=== PATIENT | male | born 1945 | race Caucasian/White ===

== ENCOUNTER 2017-12-13 09:57 | Emergency (ER) | payer OTHER, MEDICARE ==
[~2017-12-13] VITALS: Ht 185.4 cm; Wt 106.8 kg
[~2017-12-13 09:57] MED LIST: ASPI81TA52 PO; BUPR1TAB36 SL; GABA-532 PO; LISI10TA4 PO; RIVA20TA PO; SIMV40TA PO
[2017-12-13 11:07] LABS: BASOPHILS % (AUTO) 0.3 % (0-1); EOSINOPHILS # (AUTO) 0.2 X10'3 (0-0.9); EOSINOPHILS % (AUTO) 2.2 % (0-6); HEMATOCRIT 40.1 % (42.0-52.0); HEMOGLOBIN 13.3 g/dl (14.0-17.9); LYMPHOCYTES # (AUTO) 1.7 X10'3 (1.1-4.8); LYMPHOCYTES % (AUTO) 21.1 % (21-51); MEAN CORPUSCULAR HEMOGLOBIN 30.9 PG (27.0-31.0); MEAN CORPUSCULAR HGB CONC 33.2 % (33.0-36.5); MEAN CORPUSCULAR VOLUME 93.2 FL (78-98); MEAN PLATELET VOLUME 9.2 FL (7.4-10.4); MONOCYTES # (AUTO) 0.6 X10'3 (0-0.9); MONOCYTES % (AUTO) 7.8 % (2-12); NEUTROPHILS # (AUTO) 5.5 X10'3 (1.8-7.7); NEUTROPHILS % (AUTO) 68.6 % (42-75); PLATELET COUNT 196 X10'3 (140-440); RED BLOOD COUNT 4.31 X10'6 (4.70-6.10); RED CELL DISTRIBUTION WIDTH 14.2 % (11.5-14.5); WHITE BLOOD COUNT 8.1 X10'3 (4.5-11.0)
[2017-12-13] MEDS ORDERED: normal saline 1000ML IV soln IVB ONE (11:15)
[2017-12-13 11:16] LABS: INR 1.2 INR; PARTIAL THROMBOPLASTIN TIME 35 SECONDS (22-32); PROTHROMBIN TIME 11.9 SECONDS (9.0-12.0)
[2017-12-13 11:20] LABS: ALANINE AMINOTRANSFERASE 77 U/L (12-78); ALBUMIN 3.4 G/DL (3.4-5.0); ALKALINE PHOSPHATASE 115 IU/L (46-116); ANION GAP 4 (8-16); ASPARTATE AMINO TRANSFERASE 27 U/L (10-37); BILIRUBIN,TOTAL 0.2 MG/DL (0.1-1.0); BLOOD UREA NITROGEN 20 MG/DL (7-18); CALCIUM 8.5 MG/DL (8.5-10.1); CHLORIDE 104 MMOL/L (99-107); GLUCOSE 103 MG/DL (70-104); POTASSIUM 4.3 MMOL/L (3.5-5.1); SODIUM 140 MMOL/L (135-145); TOTAL CARBON DIOXIDE 32.1 MMOL/L (24-32); TOTAL PROTEIN 6.7 G/DL (6.4-8.2); eGFR 73 ML/MIN
[2017-12-13 11:43] LABS: ETHANOL < 0.010 GM/DL (0.0-0.010); TROPONIN I < 0.04 NG/ML (0.0-0.05)
[2017-12-13 11:44] LABS: ACETAMINOPHEN < 2.0 UG/ML (10-30)
[2017-12-13 12:13] LABS: CLARITY,URINE CLEAR (Clear); COLOR,URINE STRAW (Yellow); GLUCOSE, URINE NEGATIVE (Neg); KETONES,URINE NEGATIVE (Neg); LEUKOCYTE ESTERASE ,URINE NEGATIVE (Neg); NITRITES, URINE NEGATIVE (Neg); OCCULT BLOOD,URINE NEGATIVE (Neg); PH,URINE 6.5 (4.8-8.0); PROTEIN,URINE NEGATIVE (Neg); UROBILINOGEN,URINE 0.2 E.U/dL (0.2-1.0)
[2017-12-13 12:14] LABS: UA COLLECTION TYPE CLN CATCH MIDSTREAM
[2017-12-13 12:25] LABS: URINE AMPHETAMINE SCREEN NEGATIVE (Neg); URINE BARBITUATE SCREEN NEGATIVE (Neg); URINE BENZODIAZEPINES SCREEN NEGATIVE (Neg); URINE CANNABINOID SCREEN NEGATIVE (Neg); URINE COCAINE SCREEN NEGATIVE (Neg); URINE METHADONE SCREEN NEGATIVE (Neg); URINE OPIATE SCREEN NEGATIVE (Neg); URINE PHENCYCLIDINE SCREEN NEGATIVE (Neg)
[2017-12-13 14:24] VITALS: BP 161/82
== END 2017-12-13 14:26 | disposition home or self-care (01) ==
LOC: ER 09:58
DX: T40.4X1A Poisoning by other synthetic narcotics, accidental (unintentional), initial encounter (principal); T42.6X1A Poisoning by other antiepileptic and sedative-hypnotic drugs, accidental (unintentional), initial encounter; E86.0 Dehydration; I10 Essential (primary) hypertension; G62.9 Polyneuropathy, unspecified; R53.83 Other fatigue; G89.29 Other chronic pain; Z88.5 Allergy status to narcotic agent; Z79.82 Long term (current) use of aspirin; Y92.89 Other specified places as the place of occurrence of the external cause
CPT/HCPCS: 36415; 80053; 80305; 80320; 80329; 81003; 84443; 84484; 85025; 85610; 85730; 93005; 96360; 99291; J7030

== ENCOUNTER 2019-05-14 10:29 | Emergency (ER) | payer OTHER, MEDICARE ==
[~2019-05-14] VITALS: Ht 188 cm; Wt 119.5 kg
[2019-05-14] MEDS ORDERED: morphine 4 MG/ML inj SYRINge IV ONE ×3 (12:55→17:40)
[2019-05-14] MEDS ORDERED: vancomycin/NS 1 GM ADD-VANTAGE 250 ML IV ONE (12:55)
--- NOTE | 2019-05-14 14:46 | NUR ---
CALLED [facility] TO GIVE REPORT. SPOKE WITH ED RICE MILLING SUPERVISOR WHO STATED THE CN WAS BUSY AND WOULD RETURN THE CALL IN 10 MINUTES.
--- NOTE | 2019-05-14 15:55 | NUR ---
DR GONSALEZ MADE AWARE PATIENT TO BE PICKED UP BY [facility] AT 1900, PATIENT AWAKE, ALERT, NO SIGNS OF DISTRESS NOTED, FAMILY AT BEDSIDE.
[2019-05-14] MEDS ORDERED: morphine 4 MG/ML inj SYRINge IV PRN (18:00)
--- NOTE | 2019-05-14 18:01 | NUR ---
[facility] ETA 1900 BUT NO GUARANTEE, RECEIVED VERBAL ORDER DR DR DAO FOR 4 MG IV MORPHINE PRN Q 4 HOURS FOR PAIN.
[2019-05-14 19:33] VITALS: BP 132/76
[2019-05-14] MEDS ORDERED: pregabalin 75mg capsule PO ONE (20:10)
== END 2019-05-14 20:31 | disposition short-term general hospital (02) ==
LOC: ER 10:30
DX: L03.115 Cellulitis of right lower limb (principal); I10 Essential (primary) hypertension; G89.29 Other chronic pain; F32.9 Major depressive disorder, single episode, unspecified; Z86.718 Personal history of other venous thrombosis and embolism; Z98.890 Other specified postprocedural states; Z88.5 Allergy status to narcotic agent; Z79.82 Long term (current) use of aspirin; Z79.899 Other long term (current) drug therapy
CPT/HCPCS: 36415; 83605; 85651; 86140; 87040; 96374; 96376; 99285; J2270; J3370

== ENCOUNTER 2019-07-01 12:28 | Emergency (ER) | payer MEDICARE, OTHER ==
[~2019-07-01] VITALS: Ht 185.4 cm; Wt 100.8 kg
--- NOTE | 2019-07-01 12:44 | NUR ---
AMBULATORY TO ER #[id number] WITH RIGHT LEG SWELLING AND REDNESS. HX RIGHT KNEE REPLACEMENT IN 04/2019. HX PREVIOUS BLOOD CLOT IN LEG. PAIN AND SWELLING PERSIST IN LEG. TAKING ELIQUIS BID.
[2019-07-01] MEDS ORDERED: enoxaparin 100mg/ml syringe SUBCUT ONE (13:10)
--- NOTE | 2019-07-01 13:31 | NUR ---
DISCUSSED WITH MARK SOSA ABOUT PAGING THE HOSPITALIST , PER MARK SOSA DO NOT WORRY ABOUT IT ,ITS BEEN SORTED OUT.PT IS GOING TO DISCHARGE.
[2019-07-01 14:05] VITALS: BP 138/76
== END 2019-07-01 14:09 | disposition home or self-care (01) ==
LOC: ER 12:29
DX: I82.401 Acute embolism and thrombosis of unspecified deep veins of right lower extremity (principal); I10 Essential (primary) hypertension; G89.29 Other chronic pain; F32.9 Major depressive disorder, single episode, unspecified; Z98.890 Other specified postprocedural states; Z88.5 Allergy status to narcotic agent; Z79.82 Long term (current) use of aspirin; Z79.01 Long term (current) use of anticoagulants; Z79.899 Other long term (current) drug therapy
CPT/HCPCS: 96372; 99282; 99283; J1650

== ENCOUNTER 2019-07-13 06:52 | Inpatient (IN) | payer MEDICARE, OTHER ==
[~2019-07-13] VITALS: Ht 188 cm; Wt 122.7 kg
[2019-07-13 07:22] LABS: BASOPHILS % (AUTO) 0.6 % (0-1); EOSINOPHILS # (AUTO) 0.2 X10'3 (0-0.9); EOSINOPHILS % (AUTO) 2.3 % (0-6); HEMOGLOBIN 14.3 g/dl (14.0-17.9); LYMPHOCYTES # (AUTO) 2.2 X10'3 (1.1-4.8); LYMPHOCYTES % (AUTO) 32.7 % (21-51); MEAN CORPUSCULAR HEMOGLOBIN 31.5 PG (27.0-31.0); MEAN CORPUSCULAR HGB CONC 33.2 g/dL (33.0-36.5); MEAN CORPUSCULAR VOLUME 94.9 FL (78-98); MEAN PLATELET VOLUME 10.3 FL (7.4-10.4); MONOCYTES # (AUTO) 0.9 X10'3 (0-0.9); NEUTROPHILS # (AUTO) 3.4 X10'3 (1.8-7.7); NEUTROPHILS % (AUTO) 50.4 % (42-75); PLATELET COUNT 167 X10'3 (140-440); RED BLOOD COUNT 4.54 X10'6 (4.70-6.10); RED CELL DISTRIBUTION WIDTH 13.9 % (11.5-14.5); WHITE BLOOD COUNT 6.7 X10'3 (4.5-11.0)
[2019-07-13] MEDS ORDERED: heparin 25,000 UNIT/250ml bag 250 ML IV SCH ×2 (07:32→10:09)
[2019-07-13] MEDS ORDERED: heparin 10,000 units/1 ML INJ IV PRN ×3 (07:35→16:15)
[2019-07-13] MEDS ORDERED: aspirin 325mg tablet PO ONE (07:35)
[2019-07-13] MEDS ORDERED: heparin 10,000 units/1 ML INJ IV ONE ×3 (07:35→16:15)
[2019-07-13] MEDS ORDERED: fentaNYL/PF 50MCG/1 ML 2ML syringe IV ONE ×2 (07:35→08:35)
[2019-07-13 07:36] LABS: ALANINE AMINOTRANSFERASE 74 U/L (12-78); ALBUMIN 3.7 G/DL (3.4-5.0); ALKALINE PHOSPHATASE 141 IU/L (46-116); ANION GAP 10 (8-16); ASPARTATE AMINO TRANSFERASE 47 U/L (10-37); BILIRUBIN,TOTAL 0.2 MG/DL (0.1-1.0); BLOOD UREA NITROGEN 24 MG/DL (7-18); BUN/CREATININE RATIO 20.3 (5.4-32.0); CALCIUM 8.8 MG/DL (8.5-10.1); CHLORIDE 109 MMOL/L (99-107); CREATININE 1.18 MG/DL (0.60-1.10); GLUCOSE 101 MG/DL (70-104); SODIUM 146 MMOL/L (135-145); TOTAL CARBON DIOXIDE 27.4 MMOL/L (24-32); TOTAL PROTEIN 7.3 G/DL (6.4-8.2); eGFR 60 ML/MIN
[2019-07-13 07:41] LABS: PARTIAL THROMBOPLASTIN TIME 33 SECONDS (22-32)
[2019-07-13] MEDS ORDERED: iohexol 350MG/ML 100ml bottle IV ONE ×2 (07:45→15:23)
--- NOTE | 2019-07-13 08:04 | NUR ---
awaiting for sample shoe inspector and reworker to take pt to ct.
--- NOTE | 2019-07-13 08:05 | NUR ---
pathology laboratory technologist at bedside. Pt en route to CT via wheelchair.
[2019-07-13] MEDS ORDERED: normal saline 1000ml 1,000 ML IV ONE (08:15)
[2019-07-13] MEDS ORDERED: ondansetron/PF 4mg/2ml inj IV ONE (08:35)
--- NOTE | 2019-07-13 09:34 | NUR ---
still has 10/10 chest pain,dr. dimas at bedside.
[2019-07-13] MEDS ORDERED: LIDOcaine Viscous 15ml cup PO ONE (09:35)
[2019-07-13] MEDS ORDERED: mag hydrox/Alum hydrox/simeth 30ml oral suspension PO ONE (09:35)
[2019-07-13] MEDS: nitroGLYCERIN 0.4mg SUBLingual tab SL PRN ×3 (09:38→16:31)
--- NOTE | 2019-07-13 09:39 | NUR ---
per dr. dimas-hold gi cocktail for now and to try nitro SL first.
[2019-07-13] MEDS ORDERED: nitroGLYCERIN 0.4mg SUBLingual tab SL PRN ×2 (10:10)
[2019-07-13] MEDS ORDERED: aminophylline 250mg/10ml inj. IV PRN (10:10)
[2019-07-13] MEDS ORDERED: potassium CL 10mEq/100ml bag 100 ML IV PRN ×2 (10:10)
[2019-07-13] MEDS ORDERED: ondansetron/PF 4mg/2ml inj IV PRN (10:10)
[2019-07-13] MEDS ORDERED: mag hydrox/Alum hydrox/simeth 30ml oral suspension PO PRN (10:10)
[2019-07-13] MEDS ORDERED: acetaminophen 325mg tablet PO PRN ×2 (10:10)
[2019-07-13] MEDS ORDERED: metoprolol tartrate 1mg/ml inj IV PRN (10:10)
[2019-07-13] MEDS ORDERED: HYDROcodone/acetaminophen 5mg/325mg tablet PO PRN (10:10)
[2019-07-13] MEDS ORDERED: magnesium 4gm in 100ml NS 100 ML IV PRN (10:10)
[2019-07-13] MEDS ORDERED: magnesium Cl slow-release 64mg tablet PO PRN (10:10)
[2019-07-13] MEDS ORDERED: potassium Cl 20 mEq SR tablet PO PRN ×2 (10:10)
[2019-07-13] MEDS ORDERED: regadenoson 0.4mg/5ml syringe IV PRN (10:10)
[2019-07-13] MEDS ORDERED: magnesium 2GM in 50ml NS 50 ML IV PRN (10:10)
[2019-07-13] MEDS ORDERED: magnesium hydroxide 30ml (MOM) UD suspension PO PRN (10:10)
[2019-07-13] MEDS ORDERED: HYDROcodone/acetaminophen 10/325mg tab PO PRN (10:10)
--- NOTE | 2019-07-13 10:26 | NUR ---
PATIENT REPORTS CP 09/05,DR. BRADLEY MADE AWARE.
--- NOTE | 2019-07-13 10:37 | NUR ---
SPOKE TO DR. ANDERSON WHO OK'D TO CONTINUE WITH HEPARIN DRIP RATE OF 1700 UNITS PER DVT PROTOCOL.ALSO MADE AWARE THAT PATIENT'S CP IS STILL 09/05.NO REPEAT EKG AT THIS TIME-PER MD AND THAT HE IS COMING HERE SHORTLY.
[2019-07-13] MEDS ORDERED: morphine 5 MG/ML injection IV PRN (10:55)
[2019-07-13 11:07] LABS: PHOSPHORUS 3.3 MG/DL (2.3-4.5)
[2019-07-13] MEDS ORDERED: morphine 10mg/ml inj. IV PRN (11:09)
[2019-07-13] MEDS ORDERED: LYR25C PO (11:19)
[2019-07-13] MEDS ORDERED: ATOR80TA PO (11:19)
[2019-07-13] MEDS ORDERED: BUPR150T8 PO (11:19)
--- NOTE | 2019-07-13 11:21 | NUR ---
PER DR. ANDERSON,PATIENT HAS LARGE GALLSTONE AND THAT TO KEEP HEPARIN UNTIL HE SPEAKS TO DR. MILLIGAN.
--- NOTE | 2019-07-13 11:22 | NUR ---
KEEP PATIENT NPO PER DR. ANDERSON.
[2019-07-13] MEDS: normal saline 1000ml 1,000 ML IV SCH ×2 (11:27→21:43)
--- NOTE | 2019-07-13 12:40 | NUR ---
DR. FERRER/COVERING DR. SAVAGE AT BEDSIDE. Addendum: 07/13/[address] FERRER/ANESTHESIOLOGIST.
[2019-07-13 12:47] LABS: BASOPHILS % (AUTO) 0.2 % (0-1); EOSINOPHILS % (AUTO) 0.6 % (0-6); HEMATOCRIT 40.1 % (42.0-52.0); HEMOGLOBIN 13.2 g/dl (14.0-17.9); LYMPHOCYTES # (AUTO) 1.1 X10'3 (1.1-4.8); LYMPHOCYTES % (AUTO) 16.3 % (21-51); MEAN CORPUSCULAR HEMOGLOBIN 31.4 PG (27.0-31.0); MEAN CORPUSCULAR HGB CONC 32.9 g/dL (33.0-36.5); MEAN CORPUSCULAR VOLUME 95.6 FL (78-98); MEAN PLATELET VOLUME 10.8 FL (7.4-10.4); MONOCYTES # (AUTO) 0.5 X10'3 (0-0.9); MONOCYTES % (AUTO) 7.4 % (2-12); NEUTROPHILS # (AUTO) 5.2 X10'3 (1.8-7.7); NEUTROPHILS % (AUTO) 75.5 % (42-75); PLATELET COUNT 146 X10'3 (140-440); RED CELL DISTRIBUTION WIDTH 13.6 % (11.5-14.5); WHITE BLOOD COUNT 6.9 X10'3 (4.5-11.0)
[2019-07-13] MEDS ORDERED: ceFAZolin 1000mg inj ONE (12:49)
[2019-07-13] MEDS ORDERED: BUPIVAcaine/PF 2.5 mg/ml (0.25%) 30ml vial ONE (12:49)
--- NOTE | 2019-07-13 13:25 | NUR ---
FAMILY AT BEDSIDE,CALLED OR,PATIENT WILL HAVE SX AFTER "COUPLE HOURS" PER KRISTOPHER.
--- NOTE | 2019-07-13 13:25 | NUR ---
PTT 121,HEPARIN DC'D PER ORDER.PATIENT REQUESTING PAIN MED,MORPHINE GIVEN 1127.PAGED DR. ANDERSON.
--- NOTE | 2019-07-13 13:37 | NUR ---
SPOKE TO DR. ANDERSON,ORDERED TO DC MORPHINE AND TO CHANGE IT TO DILAUDID 1MG [id number] PRN FOR PAIN,ORDER NOTED AND CARRIED OUT.
--- NOTE | 2019-07-13 13:38 | NUR ---
DR. SAVAGE AT BEDSIDE.
--- NOTE | 2019-07-13 13:41 | NUR ---
PATIENT UP TO THE BATHROOM.ASSISTED BY STAFF USING A WHEELCHAIR.
[2019-07-13] MEDS: HYDROmorphone 1 mg/ml syringe IV PRN (14:33)
--- NOTE | 2019-07-13 14:36 | NUR ---
field artillery targeting technician at [facility],wu lester/[place], hold oral contrast for now,dimension specification inspector will verify order from dr. armendariz.
[2019-07-13] MEDS: diatr meglu/diatrizoate 30ml oral sol.-(3 dose) bottle PO SCH ×3 (15:00→21:00)
[2019-07-13] MEDS ORDERED: sincalide inj 1.9 MCG in normal saline 50ml IV soln 50 ML IV PRN (16:15)
[2019-07-13 16:21] LABS: LIPASE 110 U/L (73-393)
[2019-07-13 16:30] VITALS: BP 160/90
[2019-07-13] MEDS ORDERED: naloxone 0.4 mg/ml inj IV PRN (16:30)
[2019-07-13] MEDS ORDERED: CADD PCA waste documentation MC SCH (16:30)
[2019-07-13] MEDS: HYDROmorphone/NS 1 mg/ml CADD 50 ML IV SCH ×4 (17:17→23:00)
[2019-07-13] MEDS: heparin 25,000 UNIT/250ml bag 250 ML IV SCH (17:21)
--- NOTE | 2019-07-13 18:30 | NUR ---
Problems reprioritized. Patient report given, questions answered & plan of care reviewed with nicole [place].
--- NOTE | 2019-07-13 18:38 | NUR ---
Received report from Mimi DASILVA pt has family at bedside in no apparent distress, call light and items of freq use within reach.
[2019-07-13 19:15] VITALS: BP 162/67
[2019-07-13] MEDS: pregabalin 25mg capsule PO SCH (19:56)
[2019-07-13] MEDS ORDERED: temazepam 15mg capsule PO PRN (21:00)
[2019-07-14] VITALS (10 sets, daily range): BP systolic 127–166; BP diastolic 59–77
--- NOTE | 2019-07-14 00:14 | NUR ---
Notified Dr. Nicole of critical PTT of 107, will follow heparin protocol, stopped heparin for two hours.
[2019-07-14] MEDS: HYDROmorphone/NS 1 mg/ml CADD 50 ML IV SCH ×9 (00:58→21:00)
[2019-07-14] MEDS: heparin 25,000 UNIT/250ml bag 250 ML IV SCH (02:12)
--- NOTE | 2019-07-14 02:15 | NUR ---
Restarted pts heparin drip at 1400unit/hr
[2019-07-14 06:06] LABS: BASOPHILS % (AUTO) 0.1 % (0-1); EOSINOPHILS % (AUTO) 0.1 % (0-6); HEMATOCRIT 38.9 % (42.0-52.0); HEMOGLOBIN 12.7 g/dl (14.0-17.9); LYMPHOCYTES # (AUTO) 1.3 X10'3 (1.1-4.8); LYMPHOCYTES % (AUTO) 10.3 % (21-51); MEAN CORPUSCULAR HEMOGLOBIN 31.2 PG (27.0-31.0); MEAN CORPUSCULAR HGB CONC 32.7 g/dL (33.0-36.5); MEAN CORPUSCULAR VOLUME 95.5 FL (78-98); MEAN PLATELET VOLUME 11.3 FL (7.4-10.4); MONOCYTES % (AUTO) 8.4 % (2-12); NEUTROPHILS # (AUTO) 9.8 X10'3 (1.8-7.7); NEUTROPHILS % (AUTO) 81.1 % (42-75); PLATELET COUNT 148 X10'3 (140-440); RED BLOOD COUNT 4.07 X10'6 (4.70-6.10); RED CELL DISTRIBUTION WIDTH 13.8 % (11.5-14.5); WHITE BLOOD COUNT 12.1 X10'3 (4.5-11.0)
--- NOTE | 2019-07-14 06:07 | NUR ---
Gave report to Mimi DASILVA pt is resting on RA, in no apparent distress call light and items of freq use within reach.
--- NOTE | 2019-07-14 06:40 | NUR ---
Patient in room [facility] 356. I have received report from SHERRON DASILVA and had the opportunity to ask questions and assume patient care.
[2019-07-14 06:46] LABS: ALBUMIN 3.2 G/DL (3.4-5.0); ANION GAP 9 (8-16); BLOOD UREA NITROGEN 18 MG/DL (7-18); CALCIUM 8.5 MG/DL (8.5-10.1); CHLORIDE 107 MMOL/L (99-107); CHOL/HDL RATIO 1.9 (0.00-4.99); CHOLESTEROL 115 MG/DL (0-200); GLUCOSE 105 MG/DL (70-104); HDL CHOLESTEROL 61 MG/DL (35-60); LDL CHOLESTEROL 38 MG/DL (50-100); MAGNESIUM 2.2 MG/DL (1.5-2.4); PHOSPHORUS 3.2 MG/DL (2.3-4.5); SODIUM 143 MMOL/L (135-145); TOTAL CARBON DIOXIDE 26.6 MMOL/L (24-32); TRIGLYCERIDES 63 MG/DL (20-135); eGFR 73 ML/MIN
[2019-07-14] MEDS: K and/or MAG REPLACEMENT MC SCH (06:58)
[2019-07-14 07:42] LABS: LARGE PLATELETS FEW; PLATELET ESTIMATE NORMAL
[2019-07-14] MEDS ORDERED: morphine 2 MG/ML inj. syringe IV ONE (09:35)
[2019-07-14] MEDS: normal saline 1000ml 1,000 ML IV SCH ×2 (10:48→16:09)
[2019-07-14] MEDS: buPROPion SR 150mg tablet PO SCH (10:50)
[2019-07-14] MEDS: pregabalin 25mg capsule PO SCH ×2 (11:30→19:44)
--- NOTE | 2019-07-14 13:54 | NUR ---
PLACED HEP DRIP ON HOLD D/T PENDING SURGERY @ 1600
--- NOTE | 2019-07-14 18:24 | NUR ---
Problems reprioritized. Patient report given, questions answered & plan of care reviewed with BOY DASILVA.
--- NOTE | 2019-07-14 18:30 | NUR ---
Patient in room [facility] 356. I have received report from VIDYA Le and had the opportunity to ask questions and assume patient care.
--- NOTE | 2019-07-14 19:13 | NUR ---
Patent is about to go to the OR for a lap kisha within the hour. Tech informed me that he has a temp of 101.5 , and oxygen saturation 88% on RA. Patient placed on 1 L of oxygen and is now stating at 93%, cool wash cloth placed on forehead. Dr Miller was informed of the temperature and I was not given any orders.
[2019-07-14] MEDS ORDERED: gentamicin 40 MG/1 ML inj ONE (20:15)
[2019-07-14] MEDS ORDERED: clindamycin phosphate 150mg/ml inj. ONE (20:15)
[2019-07-14] MEDS ORDERED: BUPIVAcaine/PF 2.5 mg/ml (0.25%) 30ml vial ONE (20:15)
--- NOTE | 2019-07-14 20:15 | NUR ---
Patient transferred to OR with REVERSING MILL ROLLER transporting, followed by family. Patient is in no apparent distress.
[2019-07-14] MEDS ORDERED: sevoflurane 250ml liquid IH ONE (20:42)
[2019-07-14] MEDS ORDERED: ePHEDrine 50MG/ML INJ. ONE (20:42)
[2019-07-14] MEDS ORDERED: fentaNYL/PF 50MCG/1 ML 2ML syringe ONE ×2 (20:47→21:20)
[2019-07-14] MEDS ORDERED: rocuronium 10mg/ml inj IV ONE (21:08)
[2019-07-14] MEDS ORDERED: neostigmine methylsulfate 1 MG/ML 10ml vial ONE (21:08)
[2019-07-14] MEDS ORDERED: glycopyrrolate 0.2mg/ml inj ONE (21:08)
[2019-07-14] MEDS ORDERED: LIDOcaine 2% (20mg/ml) 5ml vial ONE (21:08)
[2019-07-14] MEDS ORDERED: dexamethasone sod phosphate 4mg/ml inj. ONE (21:08)
[2019-07-14] MEDS ORDERED: ondansetron/PF 4mg/2ml inj ONE (21:08)
[2019-07-14] MEDS ORDERED: propofol inj 20 ML IV ONE (21:08)
[2019-07-14] MEDS ORDERED: ceFOXitin 2 GM ADDVANTGE BAG 50 ML IV ONE (21:09)
[2019-07-14] MEDS ORDERED: ringers solution, lacted 1,000 ML IV SCH (21:37)
[2019-07-14] MEDS ORDERED: ondansetron/PF 4mg/2ml inj IV PRN (21:40)
[2019-07-14] MEDS ORDERED: HYDROmorphone inj. 0.5 MG/0.5 ML DISP.SYRIN IV PRN (21:40)
[2019-07-14] MEDS ORDERED: morphine 4 MG/ML inj SYRINge IV PRN (21:40)
--- NOTE | 2019-07-14 22:25 | NUR ---
Received from OR via BED , accompanied by Anesthesiologist DR HORAN and report given by Anesthesiolgist, PATIENT WAKING UP, DENIES PAIN, V/S WNL, CSM INTACT, ABDOMEN DRESSING X3 CDI WITH KARLY DRAIN WITH MINIMAL OUTPUT AT THIS TIME, SCD ON, 20G PIV TO RUE , SCD ON.
--- NOTE | 2019-07-14 23:25 | NUR ---
PATIENT ORIENTED X4, DENIES PAIN, V/S WNL, CSM INTACT, ABDOMEN DRESSING X3 CDI WITH KARLY DRAIN WITH MINIMAL OUTPUT AT THIS TIME, SCD ON, 20G PIV TO RUE , SCD ON. PATIENT TAKEN TO 356B WITH ALL BELONGINGS AND HOOKED UP TO MONITORS IN ROOM AND REPORT GIVEN TO RN WHO HAS TAKEN OVER PATIENT CARE.
--- NOTE | 2019-07-14 23:30 | NUR ---
Patient arrived back to unit with recovery nurse transporting, Abdominal dressing x3 CDI, KARLY to the RUQ, Sanguineous drainage is draining into it. 65% was emptied upon arrival to unit. SCDs were turned on, patients family at bedside. Addendum: 07/15/19 at 0217 by Yunior Suárez RN 65ML not %
[2019-07-15] VITALS (10 sets, daily range): BP systolic 119–132; BP diastolic 51–65
[2019-07-15] MEDS: HYDROmorphone 1 mg/ml syringe IV PRN (00:12)
[2019-07-15] MEDS: piperacillin/tazo 3.375gm/50ml 50 ML IV SCH ×3 (00:28→15:49)
[2019-07-15] MEDS: normal saline 1000ml 1,000 ML IV SCH ×3 (00:35→22:21)
--- NOTE | 2019-07-15 02:17 | NUR ---
Patient confused, he was pulling off tele monitor, and lap site dressings, he had attempted to crawl out of bed around 0000. Bed alarm was activated. was called to see if she could come sit with patient. She arrived around 0200.
[2019-07-15 06:07] LABS: ALBUMIN 2.6 G/DL (3.4-5.0); ANION GAP 9 (8-16); BLOOD UREA NITROGEN 19 MG/DL (7-18); BUN/CREATININE RATIO 18.1 (5.4-32.0); CALCIUM 7.8 MG/DL (8.5-10.1); CHLORIDE 107 MMOL/L (99-107); CREATININE 1.05 MG/DL (0.60-1.10); GLUCOSE 119 MG/DL (70-104); MAGNESIUM 2.3 MG/DL (1.5-2.4); PHOSPHORUS 3.2 MG/DL (2.3-4.5); POTASSIUM 4.5 MMOL/L (3.5-5.1); SODIUM 141 MMOL/L (135-145); TOTAL CARBON DIOXIDE 25.3 MMOL/L (24-32); eGFR 69 ML/MIN
[2019-07-15 06:14] LABS: BASOPHILS % (AUTO) 0.1 % (0-1); EOSINOPHILS % (AUTO) 0.1 % (0-6); HEMATOCRIT 36.4 % (42.0-52.0); HEMOGLOBIN 11.9 g/dl (14.0-17.9); LYMPHOCYTES # (AUTO) 0.5 X10'3 (1.1-4.8); MEAN CORPUSCULAR HEMOGLOBIN 30.8 PG (27.0-31.0); MEAN CORPUSCULAR HGB CONC 32.7 g/dL (33.0-36.5); MEAN CORPUSCULAR VOLUME 94.2 FL (78-98); MEAN PLATELET VOLUME 10.3 FL (7.4-10.4); MONOCYTES # (AUTO) 0.5 X10'3 (0-0.9); MONOCYTES % (AUTO) 4.4 % (2-12); NEUTROPHILS # (AUTO) 11.3 X10'3 (1.8-7.7); NEUTROPHILS % (AUTO) 91.4 % (42-75); PLATELET COUNT 124 X10'3 (140-440); RED BLOOD COUNT 3.87 X10'6 (4.70-6.10); RED CELL DISTRIBUTION WIDTH 13.8 % (11.5-14.5); WHITE BLOOD COUNT 12.3 X10'3 (4.5-11.0)
--- NOTE | 2019-07-15 06:20 | NUR ---
Patient in room [facility] 356. I have received report from Yunior DASILVA and had the opportunity to ask questions and assume patient care.
--- NOTE | 2019-07-15 06:28 | NUR ---
Problems reprioritized. Patient report given, questions answered & plan of care reviewed with VIDYA Canas.
[2019-07-15] MEDS: K and/or MAG REPLACEMENT MC SCH (08:00)
[2019-07-15] MEDS: buPROPion SR 150mg tablet PO SCH (08:06)
[2019-07-15] MEDS: pregabalin 25mg capsule PO SCH ×2 (08:06→20:04)
--- NOTE | 2019-07-15 18:36 | NUR ---
Patient in room [facility] 356. I have received report from VIDYA Canas and had the opportunity to ask questions and assume patient care.
--- NOTE | 2019-07-15 18:39 | NUR ---
Problems reprioritized. Patient report given, questions answered & plan of care reviewed with Yunior DASILVA.
[2019-07-15] MEDS: lactobacillus rhamnosus 10,000 MMU CELLS/CAPSULE PO SCH (20:01)
[2019-07-15] MEDS: enoxaparin 60mg/0.6ml syringe SUBCUT SCH (20:09)
[2019-07-16] VITALS: BP 134/72
[2019-07-16] MEDS: piperacillin/tazo 3.375gm/50ml 50 ML IV SCH ×3 (00:03→16:37)
[2019-07-16 01:23] VITALS: BP 123/57
[2019-07-16] MEDS: HYDROmorphone 1 mg/ml syringe IV PRN (04:14)
[2019-07-16 06:01] LABS: BASOPHILS % (AUTO) 0.3 % (0-1); EOSINOPHILS # (AUTO) 0.1 X10'3 (0-0.9); EOSINOPHILS % (AUTO) 0.9 % (0-6); HEMATOCRIT 34.6 % (42.0-52.0); HEMOGLOBIN 11.5 g/dl (14.0-17.9); LYMPHOCYTES # (AUTO) 1.1 X10'3 (1.1-4.8); LYMPHOCYTES % (AUTO) 13.5 % (21-51); MEAN CORPUSCULAR HEMOGLOBIN 31.4 PG (27.0-31.0); MEAN CORPUSCULAR HGB CONC 33.3 g/dL (33.0-36.5); MEAN CORPUSCULAR VOLUME 94.3 FL (78-98); MEAN PLATELET VOLUME 10.5 FL (7.4-10.4); MONOCYTES # (AUTO) 0.7 X10'3 (0-0.9); MONOCYTES % (AUTO) 8.4 % (2-12); NEUTROPHILS # (AUTO) 6.4 X10'3 (1.8-7.7); NEUTROPHILS % (AUTO) 76.9 % (42-75); PLATELET COUNT 137 X10'3 (140-440); RED BLOOD COUNT 3.67 X10'6 (4.70-6.10); RED CELL DISTRIBUTION WIDTH 13.9 % (11.5-14.5); WHITE BLOOD COUNT 8.3 X10'3 (4.5-11.0)
[2019-07-16 06:16] LABS: ALBUMIN 2.5 G/DL (3.4-5.0); ANION GAP 8 (8-16); BLOOD UREA NITROGEN 14 MG/DL (7-18); BUN/CREATININE RATIO 13.6 (5.4-32.0); CALCIUM 7.7 MG/DL (8.5-10.1); CHLORIDE 109 MMOL/L (99-107); CREATININE 1.03 MG/DL (0.60-1.10); GLUCOSE 106 MG/DL (70-104); MAGNESIUM 2.3 MG/DL (1.5-2.4); PHOSPHORUS 2.1 MG/DL (2.3-4.5); POTASSIUM 3.5 MMOL/L (3.5-5.1); SODIUM 143 MMOL/L (135-145); TOTAL CARBON DIOXIDE 25.8 MMOL/L (24-32); eGFR 71 ML/MIN
--- NOTE | 2019-07-16 06:30 | NUR ---
Patient in room [facility] 356. I have received report from Yunior DASILVA and had the opportunity to ask questions and assume patient care.
--- NOTE | 2019-07-16 06:40 | NUR ---
Problems reprioritized. Patient report given, questions answered & plan of care reviewed with VIDYA Solis.
[2019-07-16 07:33] VITALS: BP 133/65
[2019-07-16 07:39] LABS: LARGE PLATELETS FEW; PLATELET ESTIMATE DECREASED
[2019-07-16] MEDS: K and/or MAG REPLACEMENT MC SCH (08:04)
[2019-07-16] MEDS: buPROPion SR 150mg tablet PO SCH (08:08)
[2019-07-16] MEDS: lactobacillus rhamnosus 10,000 MMU CELLS/CAPSULE PO SCH ×2 (08:08→19:39)
[2019-07-16] MEDS: pregabalin 25mg capsule PO SCH (08:09)
[2019-07-16] MEDS: enoxaparin 60mg/0.6ml syringe SUBCUT SCH ×2 (08:12→19:40)
[2019-07-16] MEDS: normal saline 1000ml 1,000 ML IV SCH ×3 (08:18→22:36)
[2019-07-16 11:32] VITALS: BP 129/67
[2019-07-16 18:00] VITALS: BP 159/77
--- NOTE | 2019-07-16 18:30 | NUR ---
Problems reprioritized. Patient report given, questions answered & plan of care reviewed with Yunior DASILVA.
[2019-07-16] MEDS: pregabalin 75mg capsule PO SCH (19:38)
[2019-07-16] MEDS ORDERED: warfarin 5mg tablet PO ONE (21:05)
[2019-07-16 23:22] VITALS: BP 159/77
--- NOTE | 2019-07-17 | NUR ---
I missed the new Coumadin order for 2099. I called and spoke with the pharmacist who said I could give the pill now.
[2019-07-17] MEDS: piperacillin/tazo 3.375gm/50ml 50 ML IV SCH ×3 (00:13→16:18)
[2019-07-17 00:58] VITALS: BP 127/48
[2019-07-17 05:21] LABS: BASOPHILS % (AUTO) 0.5 % (0-1); EOSINOPHILS # (AUTO) 0.2 X10'3 (0-0.9); EOSINOPHILS % (AUTO) 4.8 % (0-6); HEMATOCRIT 33.7 % (42.0-52.0); HEMOGLOBIN 11.3 g/dl (14.0-17.9); LYMPHOCYTES # (AUTO) 1.2 X10'3 (1.1-4.8); LYMPHOCYTES % (AUTO) 25.9 % (21-51); MEAN CORPUSCULAR HEMOGLOBIN 31.4 PG (27.0-31.0); MEAN CORPUSCULAR HGB CONC 33.5 g/dL (33.0-36.5); MEAN CORPUSCULAR VOLUME 93.6 FL (78-98); MEAN PLATELET VOLUME 9.6 FL (7.4-10.4); MONOCYTES # (AUTO) 0.5 X10'3 (0-0.9); MONOCYTES % (AUTO) 10.7 % (2-12); NEUTROPHILS # (AUTO) 2.8 X10'3 (1.8-7.7); NEUTROPHILS % (AUTO) 58.1 % (42-75); PLATELET COUNT 163 X10'3 (140-440); RED CELL DISTRIBUTION WIDTH 13.8 % (11.5-14.5); WHITE BLOOD COUNT 4.8 X10'3 (4.5-11.0)
[2019-07-17 05:34] LABS: ALBUMIN 2.6 G/DL (3.4-5.0); ANION GAP 8 (8-16); BLOOD UREA NITROGEN 10 MG/DL (7-18); BUN/CREATININE RATIO 10.6 (5.4-32.0); CALCIUM 8.1 MG/DL (8.5-10.1); CHLORIDE 112 MMOL/L (99-107); CREATININE 0.94 MG/DL (0.60-1.10); GLUCOSE 97 MG/DL (70-104); MAGNESIUM 2.2 MG/DL (1.5-2.4); PHOSPHORUS 2.3 MG/DL (2.3-4.5); POTASSIUM 3.4 MMOL/L (3.5-5.1); SODIUM 144 MMOL/L (135-145); TOTAL CARBON DIOXIDE 24.4 MMOL/L (24-32); eGFR 78 ML/MIN
--- NOTE | 2019-07-17 06:19 | NUR ---
Problems reprioritized. Patient report given, questions answered & plan of care reviewed with VIDYA Vasquez.
--- NOTE | 2019-07-17 07:01 | NUR ---
Patient in room [facility] 356. I have received report from BOY DASILVA and had the opportunity to ask questions and assume patient care.
[2019-07-17 08:00] VITALS: BP 144/63
[2019-07-17] MEDS: K and/or MAG REPLACEMENT MC SCH (08:00)
[2019-07-17] MEDS: pregabalin 75mg capsule PO SCH ×2 (08:46→20:16)
[2019-07-17] MEDS: buPROPion SR 150mg tablet PO SCH (08:47)
[2019-07-17] MEDS: enoxaparin 60mg/0.6ml syringe SUBCUT SCH ×2 (08:47→20:23)
[2019-07-17] MEDS: lactobacillus rhamnosus 10,000 MMU CELLS/CAPSULE PO SCH ×2 (08:47→20:16)
[2019-07-17] MEDS: normal saline 1000ml 1,000 ML IV SCH (08:55)
[2019-07-17] MEDS ORDERED: potassium Cl 20 mEq SR tablet PO PRN (11:00)
[2019-07-17] MEDS ORDERED: magnesium 4gm in 100ml NS 100 ML IV PRN (11:00)
[2019-07-17] MEDS ORDERED: potassium CL 10mEq/100ml bag 100 ML IV PRN (11:00)
[2019-07-17] MEDS ORDERED: magnesium Cl slow-release 64mg tablet PO PRN (11:00)
[2019-07-17] MEDS: potassium Cl 20 mEq SR tablet PO PRN ×3 (11:07→21:49)
[2019-07-17 11:20] VITALS: BP 144/69
--- NOTE | 2019-07-17 17:00 | NUR ---
Dr. Miller saw pt and stated to take drain out in the morning (07/18), and afterward pt may be discharged home from a surgical standpoint.
[2019-07-17 18:00] VITALS: BP 110/71
--- NOTE | 2019-07-17 18:46 | NUR ---
Patient in room [facility] 356. I have received report from VIDYA Vasquez and had the opportunity to ask questions and assume patient care.
--- NOTE | 2019-07-17 18:47 | NUR ---
Problems reprioritized. Patient report given, questions answered & plan of care reviewed with JOVANNY DASILVA.
[2019-07-17] MEDS ORDERED: warfarin 5mg tablet PO ONE (21:00)
[2019-07-18] VITALS: BP 155/68
[2019-07-18] MEDS: normal saline 1000ml 1,000 ML IV SCH ×2 (00:14→09:52)
[2019-07-18] MEDS: piperacillin/tazo 3.375gm/50ml 50 ML IV SCH ×2 (00:14→07:31)
[2019-07-18] MEDS: HYDROmorphone 1 mg/ml syringe IV PRN (04:29)
[2019-07-18 06:05] LABS: BASOPHILS % (AUTO) 0.5 % (0-1); EOSINOPHILS # (AUTO) 0.2 X10'3 (0-0.9); EOSINOPHILS % (AUTO) 4.1 % (0-6); HEMATOCRIT 37.4 % (42.0-52.0); HEMOGLOBIN 12.4 g/dl (14.0-17.9); LYMPHOCYTES # (AUTO) 1.5 X10'3 (1.1-4.8); MEAN CORPUSCULAR HEMOGLOBIN 31.4 PG (27.0-31.0); MEAN PLATELET VOLUME 10.1 FL (7.4-10.4); MONOCYTES # (AUTO) 0.6 X10'3 (0-0.9); MONOCYTES % (AUTO) 11.5 % (2-12); NEUTROPHILS # (AUTO) 3.1 X10'3 (1.8-7.7); NEUTROPHILS % (AUTO) 56.9 % (42-75); PLATELET COUNT 212 X10'3 (140-440); RED BLOOD COUNT 3.94 X10'6 (4.70-6.10); RED CELL DISTRIBUTION WIDTH 13.7 % (11.5-14.5); WHITE BLOOD COUNT 5.5 X10'3 (4.5-11.0)
[2019-07-18 06:16] LABS: ALBUMIN 2.8 G/DL (3.4-5.0); ANION GAP 10 (8-16); BLOOD UREA NITROGEN 7 MG/DL (7-18); BUN/CREATININE RATIO 7.2 (5.4-32.0); CALCIUM 8.3 MG/DL (8.5-10.1); CHLORIDE 111 MMOL/L (99-107); CREATININE 0.97 MG/DL (0.60-1.10); GLUCOSE 100 MG/DL (70-104); PHOSPHORUS 3.2 MG/DL (2.3-4.5); POTASSIUM 3.8 MMOL/L (3.5-5.1); SODIUM 144 MMOL/L (135-145); TOTAL CARBON DIOXIDE 22.9 MMOL/L (24-32); eGFR 76 ML/MIN
--- NOTE | 2019-07-18 06:54 | NUR ---
Problems reprioritized. Patient report given, questions answered & plan of care reviewed with VIDYA Mcduffie.
[2019-07-18 07:10] VITALS: BP 142/71
[2019-07-18] MEDS: buPROPion SR 150mg tablet PO SCH (07:31)
[2019-07-18] MEDS: K and/or MAG REPLACEMENT MC SCH (07:31)
[2019-07-18] MEDS: lactobacillus rhamnosus 10,000 MMU CELLS/CAPSULE PO SCH (07:31)
[2019-07-18] MEDS: pregabalin 75mg capsule PO SCH (07:31)
[2019-07-18] MEDS: enoxaparin 60mg/0.6ml syringe SUBCUT SCH (07:32)
--- NOTE | 2019-07-18 11:48 | NUR ---
Initial: Pt s/p lap cholecystectomy advanced to regular diet PO 100% meals meeting needs. LBM 07/17. Receiving electrolyte replacement per protocol. No nutrition concerns at this time. Will continue to monitor. Rec: 1. continue regular diet per MD 2. wt per rx Addendum: 07/18/19 at [address] Amended: Links added.
[2019-07-18 12:00] VITALS: BP 144/67
[2019-07-18] MEDS ORDERED: NITR0.4T51 SL (13:07)
[2019-07-18] MEDS ORDERED: AMOX-419 PO (13:07)
[2019-07-18] MEDS ORDERED: LACT1CAP26 PO (13:07)
[2019-07-18] MEDS ORDERED: WARF-55 PO (13:07)
[2019-07-18] MEDS ORDERED: ENOX60DI10 SUBCUT (13:07)
[2019-07-18] MEDS ORDERED: ATOR20TA66 PO (13:07)
--- NOTE | 2019-07-18 14:04 | NUR ---
Patient discharged home with . Stable and appropriate. IV's and school lunch monitor removed. All belongings taken from room. New prescriptions given to patient. Discharge instructions given and reviewed with patient.
[2019-07-18] MEDS ORDERED: warfarin 7.5mg tablet PO ONE (21:00)
== END 2019-07-18 14:00 | disposition home or self-care (01) | DRG 419 ==
LOC: ER 06:53 → SUR 3N 16:10 → OBSVTOIN 16:10 → CMPBEDREQ 07-15 21:12
PROVIDERS: ADMIT Family Medicine; ATTEND Family Medicine
PROC: B32T1ZZ Computerized Tomography (CT Scan) of Left Pulmonary Artery using Low Osmolar Contrast (ICD-10-PCS; 2019-07-13)
PROC: B3201ZZ Computerized Tomography (CT Scan) of Thoracic Aorta using Low Osmolar Contrast (ICD-10-PCS; 2019-07-13)
PROC: B32S1ZZ Computerized Tomography (CT Scan) of Right Pulmonary Artery using Low Osmolar Contrast (ICD-10-PCS; 2019-07-13)
PROC: B4201ZZ Computerized Tomography (CT Scan) of Abdominal Aorta using Low Osmolar Contrast (ICD-10-PCS; 2019-07-13)
PROC: B4241ZZ Computerized Tomography (CT Scan) of Superior Mesenteric Artery using Low Osmolar Contrast (ICD-10-PCS; 2019-07-13)
PROC: B4281ZZ Computerized Tomography (CT Scan) of Bilateral Renal Arteries using Low Osmolar Contrast (ICD-10-PCS; 2019-07-13)
PROC: B4211ZZ Computerized Tomography (CT Scan) of Celiac Artery using Low Osmolar Contrast (ICD-10-PCS; 2019-07-13)
PROC: 0FN44ZZ Release Gallbladder, Percutaneous Endoscopic Approach (ICD-10-PCS; 2019-07-14)
PROC: CF141ZZ Planar Nuclear Medicine Imaging of Gallbladder using Technetium 99m (Tc-99m) (ICD-10-PCS; 2019-07-14)
PROC: 0FT44ZZ Resection of Gallbladder, Percutaneous Endoscopic Approach (ICD-10-PCS; principal; 2019-07-14 20:43)
DX: K80.00 Calculus of gallbladder with acute cholecystitis without obstruction (principal); K66.0 Peritoneal adhesions (postprocedural) (postinfection); I10 Essential (primary) hypertension; K21.9 Gastro-esophageal reflux disease without esophagitis; K82.8 Other specified diseases of gallbladder; Z96.643 Presence of artificial hip joint, bilateral; Z96.651 Presence of right artificial knee joint; F32.9 Major depressive disorder, single episode, unspecified; G89.29 Other chronic pain; M54.9 Dorsalgia, unspecified; R07.9 Chest pain, unspecified; Z86.718 Personal history of other venous thrombosis and embolism; Z88.5 Allergy status to narcotic agent
CPT/HCPCS: 36415; 71045; 71275; 74174; 76700; 78227; 80048; 80053; 80061; 83605; 83690; 83735; 83880; 84100; 84145; 84484; 85025; 85610; 85730; 86885; 86900; 86901; 86920; 87081; 88304; 93005; 93306; 96365; 96366; 96375; 96376; 99285; A4215; A4618; A6402; A7000; A9537; G0378; J0690; J0694; J1100; J1170; J1580; J1644; J1650; J2001; J2270; J2405; J2543; J2704; J2710; J3010; J3490; J7030; J7120; Q9967

== ENCOUNTER 2019-09-20 15:17 | Emergency (ER) | payer MEDICARE, OTHER ==
[~2019-09-20] VITALS: Ht 188 cm; Wt 118.3 kg
[~2019-09-20 15:17] MED LIST changes: -ASPI81TA52 PO; +ATOR20TA66 PO; +BUPR150T8 PO; -BUPR1TAB36 SL; +ENOX60DI10 SUBCUT; -GABA-532 PO; +LACT1CAP26 PO; -LISI10TA4 PO; +LYR25C PO; +NITR0.4T51 SL; -RIVA20TA PO; -SIMV40TA PO; +WARF-55 PO
[2019-09-20 16:29] LABS: BASOPHILS % (AUTO) 0.5 % (0-1); EOSINOPHILS # (AUTO) 0.1 X10'3 (0-0.9); EOSINOPHILS % (AUTO) 1.2 % (0-6); HEMATOCRIT 42.2 % (42.0-52.0); HEMOGLOBIN 13.9 g/dl (14.0-17.9); LYMPHOCYTES # (AUTO) 1.3 X10'3 (1.1-4.8); MEAN CORPUSCULAR HGB CONC 33.1 g/dL (33.0-36.5); MEAN CORPUSCULAR VOLUME 93.6 FL (78-98); MEAN PLATELET VOLUME 10.4 FL (7.4-10.4); MONOCYTES # (AUTO) 0.7 X10'3 (0-0.9); MONOCYTES % (AUTO) 12.5 % (2-12); NEUTROPHILS # (AUTO) 3.4 X10'3 (1.8-7.7); NEUTROPHILS % (AUTO) 61.8 % (42-75); PLATELET COUNT 170 X10'3 (140-440); RED CELL DISTRIBUTION WIDTH 15.5 % (11.5-14.5); WHITE BLOOD COUNT 5.6 X10'3 (4.5-11.0)
[2019-09-20 16:50] LABS: ALANINE AMINOTRANSFERASE 52 U/L (12-78); ALBUMIN 3.7 G/DL (3.4-5.0); ALBUMIN/GLOBULIN RATIO 0.9 (1.1-1.5); ALKALINE PHOSPHATASE 144 IU/L (46-116); ANION GAP 8 (8-16); ASPARTATE AMINO TRANSFERASE 31 U/L (10-37); BILIRUBIN,TOTAL 0.3 MG/DL (0.1-1.0); BLOOD UREA NITROGEN 21 MG/DL (7-18); BUN/CREATININE RATIO 19.4 (5.4-32.0); CALCIUM 8.9 MG/DL (8.5-10.1); CHLORIDE 107 MMOL/L (99-107); CREATININE 1.08 MG/DL (0.60-1.10); GLUCOSE 97 MG/DL (70-104); POTASSIUM 3.8 MMOL/L (3.5-5.1); SODIUM 144 MMOL/L (135-145); TOTAL CARBON DIOXIDE 28.6 MMOL/L (24-32); TOTAL PROTEIN 7.8 G/DL (6.4-8.2); eGFR 67 ML/MIN
[2019-09-20 17:40] LABS: PARTIAL THROMBOPLASTIN TIME 36 SECONDS (22-32)
[2019-09-20] MEDS ORDERED: CEPH-572 PO (19:11)
[2019-09-20 19:16] VITALS: BP 147/77
== END 2019-09-20 19:34 | disposition home or self-care (01) ==
LOC: ER 15:18
DX: L03.031 Cellulitis of right toe (principal); D68.51 Activated protein C resistance; I10 Essential (primary) hypertension; G89.29 Other chronic pain; Z86.718 Personal history of other venous thrombosis and embolism; Z96.651 Presence of right artificial knee joint; Z98.890 Other specified postprocedural states; Z79.899 Other long term (current) drug therapy; Z79.01 Long term (current) use of anticoagulants; Z88.5 Allergy status to narcotic agent; Z90.49 Acquired absence of other specified parts of digestive tract
CPT/HCPCS: 36415; 71045; 80053; 84484; 85025; 85610; 85730; 93005; 93971; 99284

== ENCOUNTER 2020-12-31 14:35 | Inpatient (IN) | payer OTHER ==
[~2020-12-31] VITALS: Ht 188 cm; Wt 116.6 kg
[2020-12-31 15:14] LABS: BASOPHILS % (AUTO) 0.3 % (0-1); EOSINOPHILS # (AUTO) 0.1 X10'3 (0-0.9); EOSINOPHILS % (AUTO) 1.2 % (0-6); HEMATOCRIT 42.1 % (42.0-52.0); HEMOGLOBIN 13.9 g/dl (14.0-17.9); LYMPHOCYTES # (AUTO) 2.6 X10'3 (1.1-4.8); MEAN CORPUSCULAR HEMOGLOBIN 31.3 PG (27.0-31.0); MEAN CORPUSCULAR HGB CONC 32.9 g/dL (33.0-36.5); MEAN CORPUSCULAR VOLUME 95.1 FL (78-98); MONOCYTES # (AUTO) 0.6 X10'3 (0-0.9); MONOCYTES % (AUTO) 7.8 % (2-12); NEUTROPHILS # (AUTO) 4.4 X10'3 (1.8-7.7); NEUTROPHILS % (AUTO) 56.7 % (42-75); PLATELET COUNT 191 X10'3 (140-440); RED BLOOD COUNT 4.43 X10'6 (4.70-6.10); RED CELL DISTRIBUTION WIDTH 13.7 % (11.5-14.5); WHITE BLOOD COUNT 7.7 X10'3 (4.5-11.0)
[2020-12-31 15:29] LABS: ALANINE AMINOTRANSFERASE 115 U/L (12-78); ALBUMIN 3.8 G/DL (3.4-5.0); ALKALINE PHOSPHATASE 129 IU/L (46-116); ANION GAP 11 (8-16); ASPARTATE AMINO TRANSFERASE 40 U/L (10-37); BILIRUBIN,TOTAL 0.4 MG/DL (0.1-1.0); BLOOD UREA NITROGEN 32 MG/DL (7-18); BUN/CREATININE RATIO 27.8 (5.4-32.0); CALCIUM 9.1 MG/DL (8.5-10.1); CHLORIDE 107 MMOL/L (99-107); CREATININE 1.15 MG/DL (0.60-1.10); GLUCOSE 94 MG/DL (70-104); LIPASE 88 U/L (73-393); SODIUM 145 MMOL/L (135-145); TOTAL CARBON DIOXIDE 27.4 MMOL/L (24-32); TOTAL PROTEIN 7.7 G/DL (6.4-8.2); eGFR 62 ML/MIN
[2020-12-31] MEDS ORDERED: iohexol 300mg/ml 100ml inj. ONE (15:42)
[2020-12-31 15:48] LABS: PLATELET ESTIMATE NORMAL
[2020-12-31 15:49] LABS: LARGE PLATELETS FEW
--- NOTE | 2020-12-31 16:12 | NUR ---
PT TO CT VIA ARI
[2020-12-31 16:13] LABS: CLARITY,URINE CLEAR (Clear); COLOR,URINE YELLOW (Yellow); GLUCOSE, URINE NEGATIVE (Neg); KETONES,URINE NEGATIVE (Neg); LEUKOCYTE ESTERASE ,URINE NEGATIVE (Neg); NITRITES, URINE NEGATIVE (Neg); OCCULT BLOOD,URINE NEGATIVE (Neg); PH,URINE 5.5 (4.8-8.0); PROTEIN,URINE NEGATIVE (Neg); UROBILINOGEN,URINE 0.2 E.U/dL (0.2-1.0)
[2020-12-31 16:24] LABS: UA COLLECTION TYPE URINAL
[2020-12-31 16:45] LABS: OCCULT BLOOD STOOL POSITIVE (Neg)
[2020-12-31 17:35] LABS: PARTIAL THROMBOPLASTIN TIME 32 SECONDS (22-32)
[2020-12-31] MEDS ORDERED: NITR0.4T51 SL (17:51)
[2020-12-31] MEDS ORDERED: LYR75C PO (17:51)
[2020-12-31] MEDS ORDERED: PANT-47 PO (17:51)
[2020-12-31] MEDS ORDERED: ATOR-2 PO (17:51)
[2020-12-31] MEDS ORDERED: WARF-65 PO (17:51)
[2020-12-31] MEDS ORDERED: ENOX40SY7 SQ (17:51)
[2020-12-31] MEDS ORDERED: LISI-604 PO (17:51)
[2020-12-31] MEDS ORDERED: WARF-55 PO (17:51)
[2020-12-31] MEDS ORDERED: BUPR-352 PO (17:51)
[2020-12-31] MEDS ORDERED: CYCL-394 PO (17:51)
[2020-12-31] MEDS ORDERED: human prothrombin complex-PCC 500 UNIT/20 ML VIAL IV ONE ×2 (18:00→20:45)
[2020-12-31] MEDS ORDERED: WATER FOR INJECTION IV ONE ×2 (18:25)
[2020-12-31] MEDS ORDERED: STERILE IV ONE ×2 (18:25)
[2020-12-31] MEDS ORDERED: HUMAN PROTHROMBIN COMPLEX PCC IV ONE ×2 (18:25)
--- NOTE | 2020-12-31 18:30 | NUR ---
Pt dede at bedside currently playing [employer].
[2020-12-31] MEDS ORDERED: potassium Cl 20 mEq SR tablet PO PRN ×2 (18:50)
[2020-12-31] MEDS ORDERED: magnesium 2GM in 50ml NS 50 ML IV PRN (18:50)
[2020-12-31] MEDS ORDERED: potassium Cl 40MEQ/1/2NS 520ml 520 ML IV PRN ×2 (18:50)
[2020-12-31] MEDS ORDERED: magnesium 4gm in 100ml NS 100 ML IV PRN (18:50)
[2020-12-31] MEDS ORDERED: magnesium Cl slow-release 64mg tablet PO PRN (18:50)
[2020-12-31] MEDS ORDERED: ondansetron/PF 4mg/2ml inj IV PRN (18:50)
[2020-12-31] MEDS ORDERED: PEG 3350/Na sulf,bicarb,Cl/KCl oral sol 4 liter bottle PO ONE (18:55)
[2020-12-31] MEDS ORDERED: cyclobenzaprine 10mg tablet PO PRN (19:05)
[2020-12-31] MEDS ORDERED: nitroGLYCERIN 0.4mg SUBLingual tab SL PRN (19:05)
[2020-12-31 19:11] LABS: HEMATOCRIT 38.8 % (42.0-52.0); HEMOGLOBIN 12.8 g/dl (14.0-17.9); MEAN CORPUSCULAR HEMOGLOBIN 31.4 PG (27.0-31.0); MEAN CORPUSCULAR HGB CONC 33.1 g/dL (33.0-36.5); MEAN PLATELET VOLUME 11.2 FL (7.4-10.4); PLATELET COUNT 161 X10'3 (140-440); RED BLOOD COUNT 4.08 X10'6 (4.70-6.10); RED CELL DISTRIBUTION WIDTH 13.9 % (11.5-14.5); WHITE BLOOD COUNT 7.9 X10'3 (4.5-11.0)
[2020-12-31] MEDS: normal saline 1000ml 1,000 ML IV SCH (19:14)
--- NOTE | 2020-12-31 19:49 | NUR ---
PT in ER room 3 to be transferred to [facility]243[facility]. Report called to VIDYA Romero.
[2020-12-31 20:00] VITALS: BP_SYST 127; BP_SYST 133; BP_SYST 136; BP_SYST 158; BP_DIAS 62; BP_DIAS 64; BP_DIAS 68; BP_DIAS 73
[2020-12-31] MEDS: K and/or MAG REPLACEMENT MC SCH (20:00)
[2020-12-31] MEDS: pregabalin 75mg capsule PO SCH (20:58)
[2020-12-31 22:00] VITALS: BP 123/73
--- NOTE | 2020-12-31 23:20 | NUR ---
Pt had 2 trips in the bathroom 5 mins apart to have a bowel movement. Bowel has azar red blood. On the 2nd trip he complained of dizziness while on the commode. Pt is pale and diaphoretic. BP is 100/71, HR 75 bpm. Pt has no SOB and didn't pass out; he's still A/o x 4. Taken pt back to bed via w/c, elevate the legs higher than head/heart. BP = 130/62 69 bpm, 96 % O2 sat. While in bed he told me his experience while he was in the [facility] years ago. Will continue to monitor pt.
[2021-01-01] VITALS (14 sets, daily range): BP systolic 111–152; BP diastolic 48–81
[2021-01-01 02:19] LABS: ALBUMIN 3.5 G/DL (3.4-5.0); ANION GAP 8 (8-16); BASOPHILS % (AUTO) 0.2 % (0-1); BLOOD UREA NITROGEN 29 MG/DL (7-18); BUN/CREATININE RATIO 26.4 (5.4-32.0); CALCIUM 8.8 MG/DL (8.5-10.1); CHLORIDE 109 MMOL/L (99-107); EOSINOPHILS # (AUTO) 0.1 X10'3 (0-0.9); EOSINOPHILS % (AUTO) 0.6 % (0-6); GLUCOSE 122 MG/DL (70-104); HEMATOCRIT 36.8 % (42.0-52.0); HEMOGLOBIN 12.2 g/dl (14.0-17.9); LYMPHOCYTES # (AUTO) 1.6 X10'3 (1.1-4.8); MAGNESIUM 2.2 MG/DL (1.5-2.4); MEAN CORPUSCULAR HEMOGLOBIN 31.5 PG (27.0-31.0); MEAN CORPUSCULAR HGB CONC 33.1 g/dL (33.0-36.5); MEAN CORPUSCULAR VOLUME 95.2 FL (78-98); MEAN PLATELET VOLUME 11.4 FL (7.4-10.4); MONOCYTES # (AUTO) 0.8 X10'3 (0-0.9); MONOCYTES % (AUTO) 7.7 % (2-12); NEUTROPHILS # (AUTO) 7.9 X10'3 (1.8-7.7); NEUTROPHILS % (AUTO) 76.5 % (42-75); PLATELET COUNT 164 X10'3 (140-440); POTASSIUM 4.5 MMOL/L (3.5-5.1); RED BLOOD COUNT 3.87 X10'6 (4.70-6.10); RED CELL DISTRIBUTION WIDTH 13.9 % (11.5-14.5); SODIUM 145 MMOL/L (135-145); TOTAL CARBON DIOXIDE 28.1 MMOL/L (24-32); WHITE BLOOD COUNT 10.4 X10'3 (4.5-11.0); eGFR 65 ML/MIN
[2021-01-01] MEDS: normal saline 1000ml 1,000 ML IV SCH ×3 (05:23→19:58)
--- NOTE | 2021-01-01 06:19 | NUR ---
Problems reprioritized. Patient report given, questions answered & plan of care reviewed with VIDYA Mcduffie.
[2021-01-01 07:23] LABS: HEMATOCRIT 34.5 % (42.0-52.0); HEMOGLOBIN 11.5 g/dl (14.0-17.9); MEAN CORPUSCULAR HEMOGLOBIN 31.9 PG (27.0-31.0); MEAN CORPUSCULAR HGB CONC 33.4 g/dL (33.0-36.5); MEAN CORPUSCULAR VOLUME 95.4 FL (78-98); MEAN PLATELET VOLUME 11.2 FL (7.4-10.4); PLATELET COUNT 130 X10'3 (140-440); RED BLOOD COUNT 3.62 X10'6 (4.70-6.10); RED CELL DISTRIBUTION WIDTH 13.6 % (11.5-14.5); WHITE BLOOD COUNT 6.3 X10'3 (4.5-11.0)
[2021-01-01] MEDS: atorvastatin 20mg tablet PO SCH (08:00)
[2021-01-01] MEDS: pregabalin 75mg capsule PO SCH ×2 (08:00→19:56)
[2021-01-01] MEDS: buPROPion SR 150mg tablet PO SCH ×2 (08:00→19:55)
[2021-01-01] MEDS: K and/or MAG REPLACEMENT MC SCH ×2 (08:00→19:57)
[2021-01-01 13:47] LABS: HEMATOCRIT 34.2 % (42.0-52.0); HEMOGLOBIN 11.4 g/dl (14.0-17.9); MEAN CORPUSCULAR HEMOGLOBIN 31.8 PG (27.0-31.0); MEAN CORPUSCULAR HGB CONC 33.3 g/dL (33.0-36.5); MEAN CORPUSCULAR VOLUME 95.3 FL (78-98); MEAN PLATELET VOLUME 11.2 FL (7.4-10.4); PLATELET COUNT 139 X10'3 (140-440); RED BLOOD COUNT 3.59 X10'6 (4.70-6.10); RED CELL DISTRIBUTION WIDTH 13.9 % (11.5-14.5); WHITE BLOOD COUNT 5.6 X10'3 (4.5-11.0)
[2021-01-01] MEDS ORDERED: MIDAZolam 5mg/5ml vial ONE (14:12)
[2021-01-01] MEDS ORDERED: fentaNYL/PF 50MCG/1 ML 2ML syringe ONE (14:12)
--- NOTE | 2021-01-01 16:24 | NUR ---
PAGER ID: [phone] MESSAGE: Tammie SEBASTIAN 3018B: GI DR RECOMMENDS CLEAR LIQUID DIET, NO LOVENOX, RESUME REGULAR DOSE OF COUMADIN TOMORROW. THANKS! LINDA [phone]
--- NOTE | 2021-01-01 16:44 | NUR ---
PATIENT ARRIVED TO FLOOR. VSS. NO COMPLAINTS.
--- NOTE | 2021-01-01 18:00 | NUR ---
Patient in room PCU 3018. I have received report from Reta DASILVA and had the opportunity to ask questions and assume patient care.
[2021-01-01 18:24] LABS: HEMATOCRIT 33.7 % (42.0-52.0); HEMOGLOBIN 11.1 g/dl (14.0-17.9); MEAN CORPUSCULAR HEMOGLOBIN 31.6 PG (27.0-31.0); MEAN CORPUSCULAR VOLUME 95.6 FL (78-98); MEAN PLATELET VOLUME 10.8 FL (7.4-10.4); PLATELET COUNT 127 X10'3 (140-440); RED BLOOD COUNT 3.52 X10'6 (4.70-6.10); RED CELL DISTRIBUTION WIDTH 13.7 % (11.5-14.5); WHITE BLOOD COUNT 5.7 X10'3 (4.5-11.0)
--- NOTE | 2021-01-01 18:31 | NUR ---
PAGER ID: [phone] MESSAGE: Tammie SEBASTIAN 3018B: PATIENT REQUESTING FOOD. EICKHOF RECOMMENDED CLEAR LIQUIDS. NO LOVENOX, RESUME REGULAR DOSE OF COUMADIN TOMORROW 01/02. THANKS! [phone]
--- NOTE | 2021-01-01 18:31 | NUR ---
Problems reprioritized. Patient report given, questions answered & plan of care reviewed with VIDYA WILKERSON.
[2021-01-02 02:00] VITALS: BP 122/72
[2021-01-02 06:00] VITALS: BP 136/61
--- NOTE | 2021-01-02 06:29 | NUR ---
Patient in room PCU 3018. I have received report from VIDYA Chapman and had the opportunity to ask questions and assume patient care.
[2021-01-02 06:37] LABS: BASOPHILS % (AUTO) 0.2 % (0-1); EOSINOPHILS # (AUTO) 0.1 X10'3 (0-0.9); EOSINOPHILS % (AUTO) 2.3 % (0-6); HEMATOCRIT 30.6 % (42.0-52.0); HEMOGLOBIN 10.3 g/dl (14.0-17.9); LYMPHOCYTES # (AUTO) 1.3 X10'3 (1.1-4.8); LYMPHOCYTES % (AUTO) 27.3 % (21-51); MEAN CORPUSCULAR HEMOGLOBIN 32.1 PG (27.0-31.0); MEAN CORPUSCULAR HGB CONC 33.6 g/dL (33.0-36.5); MEAN CORPUSCULAR VOLUME 95.5 FL (78-98); MEAN PLATELET VOLUME 10.9 FL (7.4-10.4); MONOCYTES # (AUTO) 0.5 X10'3 (0-0.9); MONOCYTES % (AUTO) 9.4 % (2-12); NEUTROPHILS % (AUTO) 60.8 % (42-75); PLATELET COUNT 117 X10'3 (140-440); RED BLOOD COUNT 3.21 X10'6 (4.70-6.10); RED CELL DISTRIBUTION WIDTH 13.4 % (11.5-14.5); WHITE BLOOD COUNT 4.9 X10'3 (4.5-11.0)
--- NOTE | 2021-01-02 06:40 | NUR ---
Problems reprioritized. Patient report given, questions answered & plan of care reviewed with Joy DASILVA.
[2021-01-02 06:48] LABS: ALBUMIN 2.9 G/DL (3.4-5.0); ANION GAP 9 (8-16); BLOOD UREA NITROGEN 18 MG/DL (7-18); BUN/CREATININE RATIO 20.5 (5.4-32.0); CALCIUM 7.9 MG/DL (8.5-10.1); CHLORIDE 111 MMOL/L (99-107); CREATININE 0.88 MG/DL (0.60-1.10); GLUCOSE 103 MG/DL (70-104); POTASSIUM 3.7 MMOL/L (3.5-5.1); SODIUM 146 MMOL/L (135-145); TOTAL CARBON DIOXIDE 26.1 MMOL/L (24-32); eGFR 84 ML/MIN
[2021-01-02] MEDS: K and/or MAG REPLACEMENT MC SCH (07:07)
[2021-01-02 07:57] LABS: LARGE PLATELETS FEW; PLATELET ESTIMATE DECREASED
[2021-01-02] MEDS: atorvastatin 20mg tablet PO SCH (08:22)
[2021-01-02] MEDS: buPROPion SR 150mg tablet PO SCH (08:23)
[2021-01-02] MEDS: pregabalin 75mg capsule PO SCH (08:23)
[2021-01-02] MEDS: normal saline 1000ml 1,000 ML IV SCH (10:50)
[2021-01-02 11:35] VITALS: BP 148/60
--- NOTE | 2021-01-02 14:06 | NUR ---
Patient discharge instructions given to patient and discussed. Questions answered. patient given information on when to take next dose of medications, following up, risk factors and warning signs. Patient stated an understanding of this information. Patient PIVs removed x2 with cannula intact. Tele monitor removed and returned to the telephone maintenance mechanic office. patient getting dressed at this time and awaiting ride.
--- NOTE | 2021-01-02 14:49 | NUR ---
Patient discharged via and taken from unit via wheelchair with x1 staff. Patient alert, oriented and in no apparent distress at time of discharge. Patient took all belongings with him.
== END 2021-01-02 14:50 | disposition home or self-care (01) | DRG 920 ==
LOC: ER 14:36 → ED HOLD 18:49 → PCU 3S 20:10
PROVIDERS: ADMIT Internal Medicine; ATTEND Internal Medicine
PROC: BW211ZZ Computerized Tomography (CT Scan) of Abdomen and Pelvis using Low Osmolar Contrast (ICD-10-PCS; principal; 2020-12-31)
DX: K91.840 Postprocedural hemorrhage of a digestive system organ or structure following a digestive system procedure (principal); D68.51 Activated protein C resistance; I10 Essential (primary) hypertension; E78.5 Hyperlipidemia, unspecified; K21.9 Gastro-esophageal reflux disease without esophagitis; M54.9 Dorsalgia, unspecified; Y73.3 Surgical instruments, materials and gastroenterology and urology devices (including sutures) associated with adverse incidents; F32.9 Major depressive disorder, single episode, unspecified; G89.29 Other chronic pain; Z20.822 Contact with and (suspected) exposure to COVID-19; Z79.01 Long term (current) use of anticoagulants; Z86.718 Personal history of other venous thrombosis and embolism; Z88.5 Allergy status to narcotic agent; Z79.899 Other long term (current) drug therapy; Y92.89 Other specified places as the place of occurrence of the external cause
CPT/HCPCS: 36415; 45378; 74177; 80048; 80053; 81003; 82272; 83690; 83735; 85008; 85025; 85027; 85610; 85730; 86885; 86900; 86901; 87045; 87046; 87081; 87635; 93005; 99152; 99153; 99285; A4620; C9132; C9803; G0378; J2250; J3010; J7030; J7040; Q9967

== ENCOUNTER 2021-01-03 08:05 | Emergency (ER) | payer OTHER ==
[~2021-01-03] VITALS: Ht 188 cm; Wt 123.5 kg
[~2021-01-03 08:05] MED LIST changes: +ATOR-2 PO; -ATOR20TA66 PO; +BUPR-352 PO; -BUPR150T8 PO; +CYCL-394 PO; -ENOX60DI10 SUBCUT; -LACT1CAP26 PO; +LISI-604 PO; -LYR25C PO; +LYR75C PO; +PANT-47 PO; -WARF-55 PO
[2021-01-03 08:30] VITALS: BP 161/76
[2021-01-03] MEDS ORDERED: acetaminophen 325mg tablet PO ONE (09:30)
[2021-01-03] MEDS ORDERED: ibuprofen tablet 400 MG TABLET PO ONE (09:35)
== END 2021-01-03 12:13 | disposition home or self-care (01) ==
LOC: ER 08:05
DX: M79.601 Pain in right arm (principal); M25.521 Pain in right elbow; Z86.718 Personal history of other venous thrombosis and embolism; I10 Essential (primary) hypertension; G89.29 Other chronic pain; Z88.8 Allergy status to other drugs, medicaments and biological substances; Z79.01 Long term (current) use of anticoagulants; Z79.899 Other long term (current) drug therapy
CPT/HCPCS: 93971; 99284

== ENCOUNTER 2021-01-11 10:24 | Emergency (ER) | payer OTHER, MEDICARE ==
[~2021-01-11] VITALS: Ht 188 cm; Wt 122.7 kg
[2021-01-11] MEDS ORDERED: magnesium citrate 296ml oral solution PO ONE (12:40)
[2021-01-11] MEDS ORDERED: normal saline 1000ML IV soln IVB ONE (12:40)
--- NOTE | 2021-01-11 12:47 | NUR ---
DR LEOS ASKED ABOUT LABS DUE TO RECENT RECTAL BLEEDING AND "LOW BLOOD COUNT" FROM BLOOD DRAWS AT [facility], NO ORDERS FOR LABS
[2021-01-11 15:26] VITALS: BP 135/72
[2021-01-13 11:15] LABS: OCCULT BLOOD STOOL NEGATIVE (Neg)
== END 2021-01-11 15:30 | disposition home or self-care (01) ==
LOC: ER 10:25
DX: K59.00 Constipation, unspecified (principal); N28.1 Cyst of kidney, acquired; R10.84 Generalized abdominal pain; R42 Dizziness and giddiness; I10 Essential (primary) hypertension; G89.29 Other chronic pain; F32.9 Major depressive disorder, single episode, unspecified; Z86.718 Personal history of other venous thrombosis and embolism; Z98.890 Other specified postprocedural states; Z88.8 Allergy status to other drugs, medicaments and biological substances; Z79.899 Other long term (current) drug therapy
CPT/HCPCS: 74176; 96360; 99284; J7030; 82272

== ENCOUNTER 2021-05-11 07:23 | Day surgery (SDC) | payer OTHER ==
[2021-05-05 11:12] LABS: BASOPHILS % (AUTO) 0.3 % (0-1); EOSINOPHILS # (AUTO) 0.1 X10'3 (0-0.9); EOSINOPHILS % (AUTO) 1.2 % (0-6); LYMPHOCYTES # (AUTO) 1.5 X10'3 (1.1-4.8); LYMPHOCYTES % (AUTO) 25.5 % (21-51); MEAN CORPUSCULAR HEMOGLOBIN 31.5 PG (27.0-31.0); MEAN CORPUSCULAR HGB CONC 32.8 g/dL (33.0-36.5); MEAN CORPUSCULAR VOLUME 95.8 FL (78-98); MEAN PLATELET VOLUME 10.9 FL (7.4-10.4); MONOCYTES # (AUTO) 0.5 X10'3 (0-0.9); MONOCYTES % (AUTO) 7.8 % (2-12); NEUTROPHILS # (AUTO) 3.9 X10'3 (1.8-7.7); NEUTROPHILS % (AUTO) 65.2 % (42-75); PRE OP HEMATOCRIT 44.2 % (42.0-52.0); PRE OP HEMOGLOBIN 14.5 g/dL (14.0-17.9); PRE OP PLATELET COUNT 168 X10'3 (140-440); RED BLOOD COUNT 4.61 X10'6 (4.70-6.10); RED CELL DISTRIBUTION WIDTH 14.3 % (11.5-14.5)
[2021-05-05 11:45] LABS: ALBUMIN 3.9 G/DL (3.4-5.0); ALBUMIN/GLOBULIN RATIO 1.1 (1.1-1.5); ALKALINE PHOSPHATASE 140 IU/L (46-116); BLOOD UREA NITROGEN 27 MG/DL (7-18); CALCIUM 9.1 MG/DL (8.5-10.1); CHLORIDE 109 MMOL/L (99-107); PRE OP ALT 78 U/L (30-65); PRE OP AST 33 U/L (10-37); PRE OP BILIRUB, TOTAL 0.4 MG/DL (0.0-1.0); PRE OP GLUCOSE 79 MG/DL (70-104); PRE OP POTASSIUM 4.2 MMOL/L (3.4-5.1); TOTAL CARBON DIOXIDE 30.2 MMOL/L (24-32); TOTAL PROTEIN 7.4 G/DL (6.4-8.2); eGFR 73 ML/MIN
[2021-05-05 11:48] LABS: PRE OP ANION GAP 8 (8-16); PRE OP SODIUM 147 MMOL/L (135-145)
[2021-05-05 12:10] LABS: PLATELET ESTIMATE NORMAL
[2021-05-05 12:11] LABS: ELLIPTOCYTES FEW; GIANT PLATELET FEW; LARGE PLATELETS FEW; SCHISTOCYTES FEW
[2021-05-05 12:32] LABS: PRE OP INR 4.2 INR
[~2021-05-11] VITALS: Ht 188 cm; Wt 112.0 kg
[2021-05-11] VITALS (21 sets, daily range): BP systolic 107–143; BP diastolic 44–76
[2021-05-11] MEDS: potassium cl 20mEq in 1/2 NS 1,000 ML IV SCH ×3 (07:10→22:05)
[~2021-05-11 07:23] MED LIST changes: +HYDROmorphone 1 mg/ml syringe IV PRN; +HYDROmorphone inj. 0.5 MG/0.5 ML DISP.SYRIN IV PRN; -LISI-604 PO; +LISI-790 PO; -NITR0.4T51 SL; +WARF-65 PO; +acetaminophen 325mg tablet PO PRN; +bisacodyl 10mg suppository rectal RC PRN; +cyclobenzaprine 10mg tablet PO PRN; +diphenhydrAMINE 25mg capsule PO PRN; +famotidine 20mg tablet PO ONE; +magnesium hydroxide 30ml (MOM) UD suspension PO PRN; +ondansetron/PF 4mg/2ml inj IV PRN; +oxyCODONE/APAP 10/325mg tablet PO PRN
[2021-05-11] MEDS ORDERED: non-formulary drug (Atorvastatin Calcium 1 TAB) PO SCH (08:00)
[2021-05-11] MEDS: ascorbic acid 500mg tablet PO SCH ×2 (08:00→20:39)
[2021-05-11] MEDS: multivitamins, therapeutics tablet PO SCH (08:00)
[2021-05-11] MEDS: pantoprazole 40mg Tablet.DR PO SCH (08:00)
[2021-05-11] MEDS: lisinopril 5mg tablet PO SCH (08:00)
[2021-05-11] MEDS ORDERED: non-formulary drug (Bupropion HCl (Bupropion Xl) 1 TAB) PO SCH (08:00)
[2021-05-11] MEDS: pregabalin 75mg capsule PO SCH ×2 (08:00→20:39)
[2021-05-11] MEDS ORDERED: gabapentin 300mg capsule PO ONE (08:30)
[2021-05-11] MEDS ORDERED: metoclopramide 5 mg/ml inj IV ONE (08:30)
[2021-05-11] MEDS ORDERED: acetaminophen 325mg tablet PO ONE (08:30)
[2021-05-11] MEDS ORDERED: ceFAZolin 1000mg inj IR ONE (08:30)
[2021-05-11] MEDS ORDERED: celeCOXIB 100mg capsule PO ONE (08:56)
[2021-05-11] MEDS ORDERED: VANCOMYCIN 1,500MG inj. 1,500 MG in normal saline 500ml IV soln 500 ML IV ONE (09:00)
[2021-05-11] MEDS: ringers solution, lacted 1,000 ML IV SCH ×2 (09:14→12:49)
[2021-05-11] MEDS ORDERED: cefazolin/dext.iso 2gm/100ml 100 ML IV ONE (09:15)
[2021-05-11] MEDS: cefazolin/dext.iso 2gm/100ml 100 ML IV SCH (09:16)
[2021-05-11] MEDS ORDERED: ROPIVAcaine 0.5% (5mg/ml) 30ml vial ONE ×2 (09:22→09:57)
[2021-05-11] MEDS ORDERED: vancomycin 1,000mg inj ONE (09:22)
[2021-05-11] MEDS ORDERED: cloNIDine hcl/PF 100mcg/ml inj ONE (09:22)
[2021-05-11] MEDS ORDERED: epiNEPHrine 1 mg/ml inj ONE (09:22)
[2021-05-11] MEDS ORDERED: sevoflurane 250ml liquid IH ONE (09:25)
[2021-05-11 09:28] LABS: PRE OP PARTIAL THROMB. TIME 25 SECONDS (22-32)
[2021-05-11] MEDS ORDERED: midazolam 1 mg/ML 2ml injection ONE ×2 (09:30→09:35)
[2021-05-11] MEDS ORDERED: fentaNYL /PF 50mcg/ml 5ml ampule ONE (09:30)
[2021-05-11] MEDS ORDERED: propofol inj 20 ML IV ONE ×2 (09:42→13:21)
[2021-05-11] MEDS ORDERED: LIDOcaine 2% (20mg/ml) 5ml vial ONE (09:42)
[2021-05-11] MEDS ORDERED: rocuronium 10mg/ml inj IV ONE (09:42)
[2021-05-11] MEDS ORDERED: TRANEXAMIC ACID 1 GM IN NACL,ISO-OS 100 ML IV ONE (09:50)
[2021-05-11] MEDS ORDERED: ePHEDrine 50MG/ML INJ. ONE (09:57)
[2021-05-11] MEDS ORDERED: dexamethasone sod phosphate 4mg/ml inj. ONE (09:57)
[2021-05-11] MEDS ORDERED: ondansetron/PF 4mg/2ml inj ONE (09:57)
[2021-05-11] MEDS ORDERED: 0.9 % SODIUM CHLORIDE 10 ML VIAL ONE (09:57)
[2021-05-11] MEDS ORDERED: HYDROmorphone/PF 0.2 MG/ML SYRINGE IV PRN ×2 (10:15)
[2021-05-11] MEDS ORDERED: labetalol 20mg/4ml (5mg/ml) syringe IV PRN (10:15)
[2021-05-11] MEDS ORDERED: ringers solution, lacted 1,000 ML IV SCH (10:15)
[2021-05-11] MEDS ORDERED: hydrALAZINE 20mg/ml inj. IV PRN (10:15)
[2021-05-11] MEDS ORDERED: morphine 4 MG/ML inj SYRINge IV PRN (10:15)
[2021-05-11] MEDS ORDERED: ROPIVAcaine 0.2% (10 MG/5 ML) BOLUS INJECTION ADDCANAL PRN (10:15)
[2021-05-11] MEDS ORDERED: acetaminophen 1,000mg/100ml IV 100 ML IV PRN (10:15)
[2021-05-11] MEDS ORDERED: morphine 2 MG/ML inj. syringe IV PRN (10:15)
[2021-05-11] MEDS ORDERED: proCHLORperazine 10 MG/2 ml inj IV PRN (10:15)
[2021-05-11] MEDS ORDERED: ondansetron/PF 4mg/2ml inj IV PRN (10:15)
[2021-05-11] MEDS ORDERED: meperidine/PF 25mg/ml syringe IV PRN (10:15)
[2021-05-11] MEDS ORDERED: neostigmine methylsulfate 1 MG/ML 10ml vial ONE ×2 (10:51→13:14)
[2021-05-11] MEDS ORDERED: glycopyrrolate 0.2mg/ml inj ONE (10:51)
--- NOTE | 2021-05-11 11:29 | NUR ---
Received from OR via BED IN STABLE CONDITION , accompanied by Anesthesiologist and FORGEMAN HELPER report given by Anesthesitristin. Addendum: 05/11/21 at 1232 by Natalie Hill RN Amended: Links added.
[2021-05-11] MEDS: ROPIVAcaine 0.2%/PF PUMP/bolus 545 ML ADDCANAL SCH (12:07)
--- NOTE | 2021-05-11 12:48 | NUR ---
Patient in room . I have received report from Natalie DIRECTOR CAMP and had the opportunity to ask questions and assume patient care.
--- NOTE | 2021-05-11 13:09 | NUR ---
PATIENT TRASFERRED FROM PACU IN STABLE CONDITION AFTER REPORT GIVEN TO RN TAKING OVER PATIENTS CARE. PATIENT TRANSPORTED VIA BED WITH RN AND TECH. Addendum: 05/11/21 at 1420 by Natalie Hill RN Amended: Links added.
[2021-05-11] MEDS: gabapentin 300mg capsule PO SCH ×2 (13:50→20:39)
[2021-05-11] MEDS ORDERED: atorvastatin 20mg tablet PO SCH (13:54)
[2021-05-11] MEDS ORDERED: tranexamic acid 1gm/0.7% sal. 1,000 ML IV ONE (14:00)
[2021-05-11] MEDS ORDERED: morphine IR (immed. release) 30mg tablet PO PRN (14:55)
--- NOTE | 2021-05-11 14:59 | NUR ---
Placed a call to Dr. Baker regarding patients coumadin and pain medications as he is allergic to oxycodone. Received orders to re-start patients home coumadin dosage 10mg monday, monday and monday and 7.5 mg monday and monday. 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 Received orders for patient to have oral morphine as well when needed for pain.
--- NOTE | 2021-05-11 17:25 | NUR ---
Patient had not urinated since arrival from the recovery room, bladder scan revealed >600 mls in bladder. Placed a call to Dr. Baker and obtained order for straight cath. Order put in for straight cath if bladder scan >600 mls.
--- NOTE | 2021-05-11 18:23 | NUR ---
Problems reprioritized. Patient report given, questions answered & plan of care reviewed with Lynne DASILVA.
--- NOTE | 2021-05-11 18:35 | NUR ---
Patient in room ORTHO 4024. I have received report from Yeimi DASILVA and had the opportunity to ask questions and assume patient care.
[2021-05-11] MEDS: enoxaparin 80mg/0.8ml syringe SUBCUT SCH (20:37)
[2021-05-11] MEDS: enoxaparin 40mg/0.4ml syringe SQ SCH (20:38)
[2021-05-11] MEDS: buPROPion SR 150mg tablet PO SCH (20:38)
[2021-05-11] MEDS ORDERED: warfarin 7.5mg tablet PO SCH (21:00)
[2021-05-11] MEDS ORDERED: sennosides 8.6mg tablet PO SCH (21:00)
[2021-05-11] MEDS ORDERED: warfarin 10mg tablet PO ONE (21:00)
[2021-05-12] MEDS: cefazolin/dext.iso 2gm/100ml 100 ML IV SCH (00:30)
[2021-05-12 02:00] VITALS: BP 112/45
[2021-05-12] MEDS: morphine IR (immed. release) 30mg tablet PO PRN ×3 (05:40→14:33)
[2021-05-12 06:08] VITALS: BP 123/69
[2021-05-12 06:11] LABS: BASOPHILS % (AUTO) 0.1 % (0-1); EOSINOPHILS % (AUTO) 0 % (0-6); HEMATOCRIT 35.5 % (42.0-52.0); HEMOGLOBIN 11.9 g/dl (14.0-17.9); LYMPHOCYTES # (AUTO) 0.8 X10'3 (1.1-4.8); LYMPHOCYTES % (AUTO) 7.6 % (21-51); MEAN CORPUSCULAR HGB CONC 33.4 g/dL (33.0-36.5); MEAN CORPUSCULAR VOLUME 95.6 FL (78-98); MEAN PLATELET VOLUME 11.3 FL (7.4-10.4); MONOCYTES # (AUTO) 0.8 X10'3 (0-0.9); MONOCYTES % (AUTO) 7.4 % (2-12); NEUTROPHILS # (AUTO) 9.2 X10'3 (1.8-7.7); NEUTROPHILS % (AUTO) 84.9 % (42-75); PLATELET COUNT 139 X10'3 (140-440); RED BLOOD COUNT 3.71 X10'6 (4.70-6.10); RED CELL DISTRIBUTION WIDTH 14.2 % (11.5-14.5); WHITE BLOOD COUNT 10.8 X10'3 (4.5-11.0)
[2021-05-12 06:17] LABS: ANION GAP 7 (8-16); CHLORIDE 108 MMOL/L (99-107); POTASSIUM 4.4 MMOL/L (3.5-5.1); SODIUM 142 MMOL/L (135-145)
--- NOTE | 2021-05-12 06:33 | NUR ---
Problems reprioritized. Patient report given, questions answered & plan of care reviewed with Yeimi DASILVA.
[2021-05-12 07:00] LABS: LARGE PLATELETS FEW; PLATELET ESTIMATE DECREASED
[2021-05-12] MEDS: gabapentin 300mg capsule PO SCH ×2 (07:29→14:33)
[2021-05-12] MEDS: pantoprazole 40mg Tablet.DR PO SCH (07:29)
[2021-05-12] MEDS: buPROPion SR 150mg tablet PO SCH (07:29)
[2021-05-12] MEDS: pregabalin 75mg capsule PO SCH (07:30)
[2021-05-12] MEDS: ascorbic acid 500mg tablet PO SCH (07:30)
[2021-05-12] MEDS: multivitamins, therapeutics tablet PO SCH (07:30)
[2021-05-12] MEDS: enoxaparin 80mg/0.8ml syringe SUBCUT SCH (07:31)
[2021-05-12] MEDS: enoxaparin 40mg/0.4ml syringe SQ SCH (07:31)
[2021-05-12] MEDS: potassium cl 20mEq in 1/2 NS 1,000 ML IV SCH (07:38)
[2021-05-12] MEDS: lisinopril 5mg tablet PO SCH (08:00)
--- NOTE | 2021-05-12 09:30 | NUR ---
Called and spoke with Dr. Baker regarding patient. He is discharged and worried about going home because of his factor V leiden and his DVT history. Dr. Baker stated this is not a reason to keep him another night, educate him on s/s of DVT and to come to the er if any symptoms. Patient is being discharged home on warfarin and lovenox which he has set up for him at home already.
[2021-05-12 10:22] VITALS: BP 107/65
--- NOTE | 2021-05-12 12:08 | NUR ---
Joint surgery consult: Pt s/p L knee surgery this admit. Pt/family seen by RD for written/verbal high protein ed w/ RD contact information provided. Pt reports does not drink ensure ONS but has 'breakfast protein drink' makes. Pt also reports does not drink regular milk prefers soy milk instead. 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 Dietary notified of preferences. RD encouraged pt to contact dietitian's office if further questions/concerns. Addendum: 05/12/21 at [address] Amended: Links added.
[2021-05-12] MEDS: ROPIVAcaine 0.2%/PF PUMP/bolus 545 ML ADDCANAL SCH (14:07)
--- NOTE | 2021-05-12 15:01 | NUR ---
Patient discharged to home via wheelchair to private vehicle with Denice. Discharge instructions given to both the patient and his . 18 gauge iv removed from right wrist, cannula intact no s/s of phlebitis. Verbalized understanding of instructions and follow up.
[2021-05-12] MEDS ORDERED: celeCOXIB 100mg capsule PO SCH (20:00)
[2021-05-12] MEDS ORDERED: warfarin 10mg tablet PO SCH (21:00)
[2021-05-12] MEDS ORDERED: warfarin 10mg tablet PO ONE (21:00)
[2021-05-13] MEDS ORDERED: warfarin 7.5mg tablet PO ONE (08:00)
== END 2021-05-12 15:30 | disposition home or self-care (01) ==
LOC: PAS 07:23 → ORTHO 4S 13:43 → PAS 05-12 15:30
PROVIDERS: ATTEND Orthopaedic Surgery
DX: M17.12 Unilateral primary osteoarthritis, left knee (principal); M21.162 Varus deformity, not elsewhere classified, left knee; G89.18 Other acute postprocedural pain; E78.5 Hyperlipidemia, unspecified; I10 Essential (primary) hypertension; K21.9 Gastro-esophageal reflux disease without esophagitis; D68.2 Hereditary deficiency of other clotting factors; G47.33 Obstructive sleep apnea (adult) (pediatric); G62.9 Polyneuropathy, unspecified; E66.8 Other obesity; Z68.31 Body mass index [BMI] 31.0-31.9, adult; F32.89 Other specified depressive episodes; Z96.651 Presence of right artificial knee joint; Z96.643 Presence of artificial hip joint, bilateral; Z98.890 Other specified postprocedural states; Z90.49 Acquired absence of other specified parts of digestive tract; Z79.899 Other long term (current) drug therapy
CPT/HCPCS: 27447; 36415; 64448; 73560; 76937; 80051; 80053; 82948; 85025; 85610; 85730; 86885; 86900; 86901; 87081; 97161; 97530; C1713; C1776; J0171; J0735; J1100; J1170; J2001; J2250; J2270; J2405; J2704; J2710; J2795; J3010; J3370; J7120; 85008; A4215; A7000; G0378; J1650; J3480; J3490

== ENCOUNTER 2024-01-24 14:59 | Outpatient (CLI) | payer OTHER ==
[~2024-01-24] VITALS: Ht 215.9 cm; Wt 115.2 kg
[~2024-01-24 14:59] MED LIST changes: -HYDROmorphone 1 mg/ml syringe IV PRN; -HYDROmorphone inj. 0.5 MG/0.5 ML DISP.SYRIN IV PRN; -LISI-790 PO; +LISI5TAB22 PO; -acetaminophen 325mg tablet PO PRN; -bisacodyl 10mg suppository rectal RC PRN; -cyclobenzaprine 10mg tablet PO PRN; -diphenhydrAMINE 25mg capsule PO PRN; -famotidine 20mg tablet PO ONE; -magnesium hydroxide 30ml (MOM) UD suspension PO PRN; -ondansetron/PF 4mg/2ml inj IV PRN; -oxyCODONE/APAP 10/325mg tablet PO PRN
[2024-01-24] MEDS: albuterol 2.5 MG/3 ML nebule NEB ONE (16:03)
[2024-01-24 16:05] VITALS: PULSE 61; RESP 14; O2SAT 95
== END 2024-01-24 23:59 | disposition home or self-care (01) ==
LOC: RT 14:59
PROVIDERS: ATTEND Chiropractor
DX: R06.02 Shortness of breath (principal); G47.30 Sleep apnea, unspecified; Z79.899 Other long term (current) drug therapy
CPT/HCPCS: 71046; 94060; 94760